=== PATIENT | male | born 1960 | race Caucasian/White ===

== ENCOUNTER 2018-07-09 13:03 | Emergency (ER) | payer OTHER ==
[~2018-07-09] VITALS: Ht 170.2 cm; Wt 125.0 kg
[2018-07-09] MEDS ORDERED: DICLOFENAC50 MG PO (13:25)
[2018-07-09] MEDS ORDERED: MEDDOSEPAK PO (13:25)
[2018-07-09 13:40] VITALS: BP 137/86
== END 2018-07-09 13:40 | disposition home or self-care (01) | DRG 554 ==
LOC: ED 13:03
DX: M10.072 Idiopathic gout, left ankle and foot (principal); I13.0 Hypertensive heart and chronic kidney disease with heart failure and stage 1 through stage 4 chronic kidney disease, or unspecified chronic kidney disease; N18.4 Chronic kidney disease, stage 4 (severe); E11.22 Type 2 diabetes mellitus with diabetic chronic kidney disease; I50.9 Heart failure, unspecified; Z86.711 Personal history of pulmonary embolism; Z86.718 Personal history of other venous thrombosis and embolism